=== PATIENT | male | born 1965 | race Caucasian/White ===

== ENCOUNTER 2019-01-26 10:25 | Emergency (ER) | payer MEDICAID, OTHER ==
--- NOTE | 2019-01-26 10:50 | EDM.PDOC ---
ED HPI GENERAL MEDICAL PROBLEM - General Stated Complaint: LT SIDE NUMBNESS ON FACE AND ARM Time Seen by Provider: 01/26/19 10:25 Source of Information: Reports: Patient, Family History Limitations: Reports: No Limitations - History of Present Illness INITIAL COMMENTS - FREE TEXT/NARRATIVE: 53 y.o.w.m came with his coworkers to the ED after he felt some numbness at his left hand/arm and left face at 8 am. [place] using drugs like amphetamines. No N/V/D. pt was able to walk [employer], pt was ambulating fine and did not show a focal weakness on his initial exam. He was talking full sentences. No Pain, No N/V/D or any other acute med issues. BP 160 /90 RR 15 Pulse ox 98% on RA Pulse 85 Temp 36.6 Onset Date: 01/26/19 Onset Time: 08:00 Duration: Hour(s): Location: Reports: Face, Upper Extremity, Left (numbness) Quality: Reports: Other (numbness) Improves with: Reports: None Worsens with: Reports: None Context: Reports: Other (Drinking, drugs last night) Associated Symptoms: Reports: No Other Symptoms - Related Data Allergies Allergy/AdvReac Type Severity Reaction Status Date / Time No Known Allergies Allergy Verified 01/26/19 10:48 ED ROS GENERAL - Review of Systems Review Of Systems: See Below Constitutional: Reports: No Symptoms HEENT: Reports: No Symptoms Respiratory: Reports: No Symptoms Cardiovascular: Reports: No Symptoms Endocrine: Reports: No Symptoms GI/Abdominal: Reports: No Symptoms : Reports: No Symptoms Musculoskeletal: Reports: No Symptoms Skin: Reports: No Symptoms Neurological: Reports: Numbness (left face left arm) Psychiatric: Reports: No Symptoms Hematologic/Lymphatic: Reports: No Symptoms Immunologic: Reports: No Symptoms ED EXAM, NEURO - Physical Exam Exam: See Below Exam Limited By: No Limitations General Appearance: Alert, WD/WN, Mild Distress Eye Exam: Bilateral Eye: Normal Inspection Ears: Normal External Exam, Normal Canal Nose: Normal Inspection, Normal Mucosa Throat/Mouth: Normal Inspection, Normal Lips, Normal Voice, No Airway Compromise Head Exam: Atraumatic, Normocephalic Neck: Normal Inspection, Supple, Non-Tender, Full Range of Motion Respiratory/Chest: No Respiratory Distress, Lungs Clear, No Accessory Muscle Use , Chest Non-Tender Cardiovascular: Normal Peripheral Pulses, Regular Rate, Rhythm GI/Abdominal: Normal Bowel Sounds, Soft, Non-Tender (Male) Exam: Deferred Rectal (Males) Exam: Normal Exam Neurological: Alert, Normal Mood/Affect, Normal Dorsiflexion, Normal Plantar Flexion, Normal Gait, Oriented x 3, Other (numbness left hand and left face) Back Exam: Normal Inspection, Full Range of Motion Extremities: Normal Inspection, Normal Range of Motion, Non-Tender, No Pedal Edema, Normal Capillary Refill Psychiatric: Normal Affect, Normal Mood Skin Exam: Warm, Dry, Intact, Normal Color, No Rash EKG INTERPRETATION EKG Date: 01/26/19 Time: 10:35 Rhythm: NSR Rate (Beats/Min): 79 [place]: Normal P-Wave: Present QRS: Normal ST-T: Normal QT: Normal Comparison: NA - No Prior EKG Course - Vital Signs Text/Narrative:: 53 y.o.w.m came with his coworkers to the ED after he felt some numbness at his left hand/arm and left face at 8 am. [place] and using drugs like amphetamines. No N/V/D. pt was able to walk [employer], pt was ambulating fine and did not show a focal weakness on his initial exam. He was talking full sentences. No Pain, No N/V/D or any other acute med issues. BP 160 /90 RR 15 Pulse ox 98% on RA Pulse 85 Temp 36.6 PE: WNWD W M with facial and left arm/hand numbness NY[facility] 1 Imaging: CT head: NAD MRI Head: No acute abnormalities Labs; CBC, BMP nl UDS pos for Amphetamines Impression: Numbness left face and left hand. Cause not determined. UDS positive for amphetamine Tx: ASA Reexam: Improved. Pt was ambulating well in the ED. MRI was neg for acute CVA, Numbness at his left cheek and left had still present Plan: D/C with Mom Devon this Wednesday. D/C with instructions Last Recorded V/S: Last Vital Signs Temp 37.1 C 01/26/19 10:25 Pulse 85 01/26/19 10:25 Resp 15 01/26/19 10:25 BP 160/90 H 01/26/19 10:25 Pulse Ox 98 01/26/19 10:25 - Orders/Labs/Meds Orders: Active Orders 24 hr Category Date Time Status Brain w wo Cont [MR] Stat Exams 01/26/19 11:46 Taken Carotid Comp [US] Stat Exams 01/26/19 14:31 Ordered Head wo Cont [CT] Stat Exams 01/26/19 10:48 Taken Sodium Chloride 0.9% [Normal Saline] 1,000 ml Med 01/26/19 11:00 Active IV ASDIRECTED Medication Orders Sodium Chloride (Normal Saline) 1,000 mls @ 125 mls/hr IV ASDIRECTED SNOW Last Admin: 01/26/19 11:12 Dose: 125 mls/hr Labs: Laboratory Tests 01/26/19 01/26/19 01/26/19 Range/Units 10:30 10:55 10:55 WBC 8.6 (4.5-12.0) X10-3/uL RBC 4.66 (4.30-5.75) x10(6)uL Hgb 14.1 (13.5-17.8) g/dL Hct 41.4 (30.0-51.3) % MCV 88.9 (80-96) fL MCH 30.3 (27.7-33.6) pg MCHC 34.1 (32.2-35.4) g/dL RDW 13.3 (11.5-15.5) % Plt Count 326 (125-369) X10(3)uL MPV 7.5 (7.4-10.4) fL Neut % (Auto) 61.8 (46-82) % Lymph % (Auto) 24.8 (13-37) % [place] % (Auto) 9.7 (4-12) % Eos % (Auto) 3 (1.0-5.0) % Baso % (Auto) 1 (0-2) % Neut # (Auto) 5.4 (1.6-8.3) # Lymph # (Auto) 2.1 (0.6-5.0) # [place] # (Auto) 0.8 (0.0-1.3) # Eos # (Auto) 0.2 (0.0-0.8) # Baso # (Auto) 0.1 (0.0-0.2) # PT 9.3 (8.7-11.1) INR 0.96 (0.89-1.13) Sodium (135-145) mmol/L Potassium (3.5-5.3) mmol/L Chloride (100-110) mmol/L Carbon Dioxide (21-32) mmol/L BUN (7-18) mg/dL Creatinine (0.70-1.30) mg/dL Est Cr Clr Drug Dosing Estimated GFR (MDRD) (>60) BUN/Creatinine Ratio (9-20) Glucose (80-116) mg/dL Calcium (8.6-10.2) mg/dL Magnesium 1.9 (1.8-2.5) mg/dL Creatine Kinase 312 H* (60-160) IU/L Triglycerides (15-150) mg/dL Cholesterol (50-200) mg/dL LDL Cholesterol Direct (60-130) mg/dL HDL Cholesterol (40-75) mg/dL Cholesterol/HDL Ratio (0-5) Urine Opiates Screen (NEGATIVE) Ur Oxycodone Screen (NEGATIVE) Ur Propoxyphene Screen (NEGATIVE) Ur Barbituates Screen (NEGATIVE) Ur Tricyclics Screen (NEGATIVE) Ur Phencyclidine Scrn (NEGATIVE) Ur Amphetamine Screen (NEGATIVE) Urine MDMA Screen (NEGATIVE) U Benzodiazepines Scrn (NEGATIVE) U Cocaine Metab Screen (NEGATIVE) U Marijuana (THC) Screen (NEGATIVE) Ethyl Alcohol (<0.03) % 01/26/19 01/26/19 01/26/19 Range/Units 10:55 10:55 11:31 WBC (4.5-12.0) X10-3/uL RBC (4.30-5.75) x10(6)uL Hgb (13.5-17.8) g/dL Hct (30.0-51.3) % MCV (80-96) fL MCH (27.7-33.6) pg MCHC (32.2-35.4) g/dL RDW (11.5-15.5) % Plt Count (125-369) X10(3)uL MPV (7.4-10.4) fL Neut % (Auto) (46-82) % Lymph % (Auto) (13-37) % [place] % (Auto) (4-12) % Eos % (Auto) (1.0-5.0) % Baso % (Auto) (0-2) % Neut # (Auto) (1.6-8.3) # Lymph # (Auto) (0.6-5.0) # [place] # (Auto) (0.0-1.3) # Eos # (Auto) (0.0-0.8) # Baso # (Auto) (0.0-0.2) # PT (8.7-11.1) INR (0.89-1.13) Sodium 143 (135-145) mmol/L Potassium 3.5 (3.5-5.3) mmol/L Chloride 106 (100-110) mmol/L Carbon Dioxide 27 (21-32) mmol/L BUN 19 H (7-18) mg/dL Creatinine 0.9 (0.70-1.30) mg/dL Est Cr Clr Drug Dosing TNP Estimated GFR (MDRD) > 60 (>60) BUN/Creatinine Ratio 21.1 H (9-20) Glucose 80 (80-116) mg/dL Calcium 8.5 L (8.6-10.2) mg/dL Magnesium (1.8-2.5) mg/dL Creatine Kinase (60-160) IU/L Triglycerides 49 (15-150) mg/dL Cholesterol 174 (50-200) mg/dL LDL Cholesterol Direct 107 (60-130) mg/dL HDL Cholesterol 56 (40-75) mg/dL Cholesterol/HDL Ratio 3.1 (0-5) Urine Opiates Screen Negative (NEGATIVE) Ur Oxycodone Screen Negative (NEGATIVE) Ur Propoxyphene Screen Negative (NEGATIVE) Ur Barbituates Screen Negative (NEGATIVE) Ur Tricyclics Screen Negative (NEGATIVE) Ur Phencyclidine Scrn Negative (NEGATIVE) Ur Amphetamine Screen Positive H (NEGATIVE) Urine MDMA Screen Positive H (NEGATIVE) U Benzodiazepines Scrn Negative (NEGATIVE) U Cocaine Metab Screen Negative (NEGATIVE) U Marijuana (THC) Screen Negative (NEGATIVE) Ethyl Alcohol < 0.03 (<0.03) % Meds: Medications Generic Name Dose Route Start Last Admin Trade Name Freq PRN Reason Stop Dose Admin Sodium Chloride 1,000 mls @ 125 mls/hr 01/26/19 11:00 01/26/19 11:12 Normal Saline IV 125 mls/hr ASDIRECTED SNOW Administration Discontinued Medications Generic Name Dose Route Start Last Admin Trade Name Freq PRN Reason Stop Dose Admin Aspirin 324 mg 01/26/19 11:45 01/26/19 11:47 Aspirin PO 01/26/19 11:46 324 mg ONETIME ONE Administration Gadoteridol 20 ml 01/26/19 12:30 01/26/19 13:02 Prohance IV 01/26/19 12:31 14 ml . DIRECTED ONE Administration Departure - Departure Time of Disposition: 14:10 Disposition: Home, Self-Care 01 Condition: Good Clinical Impression: Numbness and tingling in right hand, Left facial numbness, Amphetamine addiction - Discharge Information Instructions: Paresthesia, Stroke Prevention, [id number] Referrals: PCP,None [Primary Care Provider] - Forms: ED Department Discharge Additional Instructions: Please avoid amphetamines, please avoid any ETOH as well. Please f/u with your PMD in am. Please come back if your symptoms get worse. Your MRI was neg for acute abnormalities. Your carotis US is scheduled for Wednesday 87.30 am here at [place]. US will call your on Wednesday. - My Orders Last 24 Hours: My Active Orders 01/26/19 10:48 Head wo Cont [CT] Stat 01/26/19 11:00 Sodium Chloride 0.9% [Normal Saline] 1,000 ml IV ASDIRECTED 01/26/19 11:46 Brain w wo Cont [MR] Stat 01/26/19 14:31 Carotid Comp [US] Stat - Assessment/Plan Last 24 Hours: My Active Orders 01/26/19 10:48 Head wo Cont [CT] Stat 01/26/19 11:00 Sodium Chloride 0.9% [Normal Saline] 1,000 ml IV ASDIRECTED 01/26/19 11:46 Brain w wo Cont [MR] Stat 01/26/19 14:31 Carotid Comp [US] Stat
[2019-01-26] MEDS ORDERED: Sodium Chloride 0.9% 1,000 ML IV SCH (11:00)
[2019-01-26] MEDS ORDERED: Aspirin 81 MG Tab.Chew PO ONE (11:45)
[2019-01-26] MEDS ORDERED: Gadoteridol 279.3 MG/ML 20 ML SDV IV ONE (12:30)
== END 2019-01-26 15:00 | disposition home or self-care (01) ==
LOC: FB.ED 10:25
DX: F15.20 Other stimulant dependence, uncomplicated (principal); R20.0 Anesthesia of skin; R82.5 Elevated urine levels of drugs, medicaments and biological substances
CPT/HCPCS: 36415; 70450; 70553; 80048; 80061; 80305; 82550; 83735; 85025; 85610; 96360; 96361; 99284; A9270; A9579; G0480; J7030; 82962; 93010